=== PATIENT | male | born 1970 | race Caucasian/White ===

== ENCOUNTER 2017-02-22 13:27 | Emergency (ER) | payer MEDICARE, MEDICAID ==
[2017-02-22 13:52] LABS: % EOSINOPHILS 2.3 % (0.0-5.0); % MONOCYTES 6.3 % (2.0-10.0)
[2017-02-22 13:59] LABS: % BASOPHILS 0.8 % (0.0-2.0); % LYMPHOCYTES 17.4 % (20.0-50.0); % NEUTROPHILS 73.2 % (40.0-80.0); HEMOGLOBIN 15.2 gm/dL (13.2-17.3); MEAN CELL VOLUME 87.5 fl (80-99); MEAN CORPUSCULAR HEMOGLOBIN 29.4 pg (26.0-30.0); MEAN CORPUSCULAR HGB CONC 33.6 pg (28.0-36.0); NEUTROPHILE ABSOLUTE 9.5 Th/cmm (1.8-8.0); PLATELET COUNT 321 Th/cmm (150-400); RED BLOOD COUNT 5.19 Mil/cmm (4.30-5.70); RED CELL DISTRIBUTION WIDTH 12.5 % (11.5-20.0)
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
[2017-02-22 14:17] LABS: HEMATOCRIT 45.4 % (39.0-49.0)
--- NOTE | 2017-02-22 15:17 | Diagnostic Imaging Report ---
Right knee (3 views) HISTORY: Pain The exam demonstrates severe degenerative changes with generalized joint space narrowing and hypertrophic spur formation about the medial femoral condyle, medial tibial plateau, and tibial spines. Spur formation also noted about the lateral tibial plateau region. Narrowing and hypertrophic spur formation noted along the posterior margin of the patella. Calcific densities noted along the posterior joint compartment. Intra-articular "loose bodies" cannot be excluded. There is partial visualization of sclerotic change in deformity of the distal femoral shaft. Findings may be associated with old trauma. Correlation with patient history and if needed dedicated radiographs of the femur would provide additional assessment. IMPRESSION: 1. Severe degenerative joint disease 2. Small calcifications projecting over the posterior joint compartment. Intra-articular "loose bodies" cannot be excluded. 2. Deformity of a partially visualized distal femur. Changes may be related to prior trauma. Correlation with patient history and if needed dedicated radiographs of the femur would provide for further assessment.
[2017-02-22 15:19] LABS: ALB/GLOB RATIO 1.7 (1.0-1.8); ALKALINE PHOSPHATASE 66 U/L (34-104); ANION GAP 8.6 (7.0-16.0); BILIRUBIN,TOTAL 0.4 mg/dL (0.3-1.0); BUN - UREA NITROGEN 9 mg/dL (7-25); BUN/CREATININE RATIO 11.3; CALCIUM SERUM 9.2 mg/dL (8.6-10.3); CARBON DIOXIDE 24.1 mEq/L (21.0-31.0); CHLORIDE 106 mEq/L (98-107); CREATININE - SERUM 0.8 mg/dL (0.7-1.3); GLUCOSE 95 mg/dL (70-105); POTASSIUM SERUM 3.7 mEq/L (3.5-5.1); SGOT 22 U/L (13-39); SGPT/ALT 30 U/L (7-52); SODIUM SERUM 135 mEq/L (136-145)
== END 2017-02-22 15:14 | disposition home or self-care (01) ==
LOC: ER 13:27
DX: M23.41 Loose body in knee, right knee (principal); I10 Essential (primary) hypertension
CPT/HCPCS: 99285; 96372; 73564; 84484; 36415; 83605; 84443; 85025; 80320; 80053; 87040; J1885; 73562-TC-RT

== ENCOUNTER 2017-02-24 19:06 | Emergency (ER) | payer MEDICARE, MEDICAID ==
--- NOTE | 2017-02-24 19:20 | ED Physician Chart ---
Chief Complaint/HPI - Patient Information Date Seen:: 02/24/17 Time Seen:: 19:15 Chief Complaint:: Chronic R knee pain for about 11 years. History of Present Illness:: Pt has h/o chronic R knee pain related to DJD from old injury about 11 y/a. Pt underwent arthroscopic surgery soon after R knee injury. Pt has been followed by PCP Dr. Vazquez. Pt was seen here by Dr. Oseguera on 02/22/17 with R knee X-ray done that demonstrates "severe degenerative joint disease. Small calcifications projecting over the posterior joint compartment. Intra-articular 'loose bodies' cannot be excluded. Deformity of a partially visualized distal femur. Changes may be related to prior trauma. Correlation with patient history and if needed dedicated radiographs of the femur would provide for further assessement." Official report per Dr. Hoang Askew. Pt denies any recent R knee injury or trauma. 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 He is essentially wheelchair bound. Pt denies any use of NSAID today. Pt is here to request pain control with Toradol IM injection as he found it very helpful in the past. Pt does not want any imaging study or lab studies. Allergies:: Allergies Allergy/AdvReac Type Severity Reaction Status Date / Time No Known Allergies Allergy Verified 04/12/16 15:00 Vitals:: see Nurse Note. Historian:: Patient Family MD/PCP:: Dr. Vazquez LMP:: N/A Review:: Nurse's Note Reviewed Review of Systems - Review of Systems General/Constitutional: No fever, No weight loss, No weakness, No edema, No loss of appetite Skin: No skin lesions, No rash, No bruising Head: No headache, No light-headedness ENT: No earache, No nasal drainage, No sore throat Neck: No neck pain, No stiffness, No mass noted Cardio Vascular: No chest pain, No palpitations, No edema Pulmonary: No SOB, No cough, No wheezing GI: No nausea, No vomiting, No pain G/U: No dysuria, No frequency, No hematuria Musculoskeletal: Bone or joint pain (chronic R knee pain.) Psychiatric: No prior psych history Hematopoietic: No bruising, No lymphadenopathy Allergic/Immuno: No urticaria, No angioedema Neurological: No syncope, No focal symptoms (except pt has chronic ataxia, see HPI.), No weakness, No headache, No dizziness, No confusion Past Medical History - Past Medical History Past Medical History: Other (chronic R knee pain related to DJD. 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 Surgical History: other (R knee arthroscopic surgery about 11 y/a.) Psychiatricy History: None Medication: Reviewed Family Medical History - Family Member Mother History Unknown: Yes Ethnicity: Non- Living Status: Still Living Hx Family Cancer: No Hx Family Coronary Artery Disease: No Hx Family Congestive Heart Failure: No Hx Family Hypertension: Yes Hx Family Stroke: No Hx Family Diabetes: Yes Hx Family Seizures: No Hx Family Dementia: No Hx Family AIDS: No Hx Family HIV: No Hx Family COPD: No Hx Family Hepatitis: No Hx Family Psychiatric Problems: No Hx Family Tuberculosis: No Father History Unknown: Yes Ethnicity: Non- Living Status: Still Living Hx Family Coronary Artery Disease: Yes Physical Exam - Physical Examination General/Constitutional: Awake, Well-developed, well-nourished, Alert, No distress, Non-toxic appearing Other Gen/Cons comments:: Breathes comfortably, speaks with mild dysarthria as in the past, interacts normally. Eyes: Lids, conjuctiva normal, PERRL, EOMI Skin: Nl inspection, Well hydrated, No lymphadenopathy ENMT: External ears, nose nl, Nasal exam nl, Oropharynx nl Neck: Nontender, Full ROM w/o pain, No nuchal rigidity, No mass, No stridor Respiratory: Nl effort/Exclusion, Clear to Auscultation, No Wheeze/Rhonchi/Rales Cardio Vascular: RRR, No murmur, gallop, rubs GI: No tenderness/rebounding/guarding, No organomegaly, Normal BS's, Nondistended Other GI comments:: Abdomen is obese but soft. Other Extremities comments:: R knee: Tenderness primarily at anterior aspect. No swelling, erythema, crepitus , unusual warmth, or open wound. Good ROM. Negative Drawer's sign. Stable MCL and LCL. No detectable motor/sensory/vascular deficit. Neuro/Psych: Alert/oriented (oriented x 3), Judgement/insight normal, Mood normal Other Neuro/Psych comments:: Ataxia noticed which is chronic; otherwise, no focal findings. ED Septic Shock - . Is Septic Shock (SBP<90, OR Lactate>4 mmol\\L) present?: No Reassessment (Disposition) - Reassessment Reassessment:: 2030 Pt feels much better and requests to go home now. Aftercare instructions have been given. Reassessment Condition:: Improved - Diagnosis Diagnosis:: Chronic R knee pain related to DJD. Stable and improved. - Aftercare/Follow up Instructions Aftercare/Follow-Up Instructions:: Refer to Discharge Instructions Notes:: Continue present care. May take Tylenol 500 mg tab one tab po q6h prn musculoskeletal pain. F/U with PCP Dr. Vazquez in one day for recheck. Return to ER immediately if condition worsens or if any further questions/problems. Medication Prescribed:: None - Patient Disposition Discharge/Transfer:: Home Time:: 20:35 Condition at Disposition:: Stable, Improved ED Discharge Plan - Patient Disposition Admit/Discharge/Transfer: PT DISCHARGED HOME Instructions: Chronic Pain
== END 2017-02-24 20:40 | disposition home or self-care (01) ==
LOC: ER 19:06
DX: G89.29 Other chronic pain (principal); M25.561 Pain in right knee
CPT/HCPCS: 99283; 96372; J1885; Z7502

== ENCOUNTER 2017-03-09 12:19 | Emergency (ER) | payer MEDICARE, MEDICAID ==
--- NOTE | 2017-03-09 12:23 | ED Physician Chart ---
ED Chief Complaint/HPI - Patient Information Date Seen:: 03/09/17 Time Seen:: 12:23 Chief Complaint:: leg pain History of Present Illness:: 46-year-old male with acute, constant, moderate, 6-7 out of 10, aching, worse with palpation, nonradiating, right lower leg pain over the mathew that started yesterday afternoon when he actually revealed his wheelchair into the back of a pickup truck. Has associated abrasion of the mathew. Allergies:: Allergies Allergy/AdvReac Type Severity Reaction Status Date / Time No Known Allergies Allergy Verified 02/24/17 19:25 Historian:: Patient Review:: Nurse's Note Reviewed ED Review of Systems - Review of Systems Other: Complete system review otherwise unremarkable except as noted in history of present illness. ED Past Medical History - Past Medical History Past Medical History: Other (history of chronic brain injury, osteoarthritis) Family History: None Social History: Non Smoker, No Alcohol, No Drug Use, Other Surgical History: other (right leg ORIF) Psychiatricy History: None Medication: Reviewed Family Medical History - Family Member Mother History Unknown: Yes Ethnicity: Non- Living Status: Still Living Hx Family Cancer: No Hx Family Coronary Artery Disease: No Hx Family Congestive Heart Failure: No Hx Family Hypertension: Yes Hx Family Stroke: No Hx Family Diabetes: Yes Hx Family Seizures: No Hx Family Dementia: No Hx Family AIDS: No Hx Family HIV: No Hx Family COPD: No Hx Family Hepatitis: No Hx Family Psychiatric Problems: No Hx Family Tuberculosis: No Father History Unknown: Yes Ethnicity: Non- Living Status: Still Living Hx Family Coronary Artery Disease: Yes ED Physical Exam - Physical Examination Other:: INITIAL VITAL SIGNS: Reviewed by me GENERAL: Alert and interactive. No acute distress HEAD: Head is normocephalic and atraumatic EYES: EOMI. PERRL. No scleral icterus. No conjunctival injection ENT: Moist mucous membranes. NECK: Supple. No masses. Full range of motion RESPIRATORY: No tachypnea. Clear breath sounds bilaterally. No wheezing, rales, or rhonchi CV: Regular rate and rhythm. No murmurs, rubs, or gallops ABDOMEN: Soft, non-distended, non-tender. No guarding. No rebound. No masses. EXTREMITIES: Right mathew, proximal portion has a 4 cm abrasion, there is tenderness to palpation over the proximal mathew area. Right distal foot has good neurovascular status. SKIN: Warm and dry. No obvious rashes. NEUROLOGIC: Alert and oriented. Face is symmetric. Speech is normal. Moves all extremities equally. Motor and sensory distally intact. ED Labs/Radiology/EKG Results - Radiology Results Results: X-ray right Tib/Fib 2V Interpreted by me: Bones: No fracture Joints: No dislocation Foreign body: None ED Septic Shock - . Is Septic Shock (SBP<90, OR Lactate>4 mmol\L) present?: No ED Reassessment (Disposition) - Reassessment Reassessment:: Injury to right mathew. Placed bacitracin on abrasion. No fracture. Appears to have contusion and abrasion. Gave intramuscular Toradol. Patient has primary care physician when she can follow up with tomorrow. He will follow-up with a primary care physician. He can take ibuprofen 40 mg [id number] hours when necessary pain. Patient to follow up with PCP in one day. Return to ER precautions given. Persistent extensors of the plan. Blood pressure was noted to be elevated over 120/80. There were no signs of hypertension. Discussed the findings with the patient and recommended that the patient follow up with the primary care physician regarding the elevated blood pressure. - Diagnosis Diagnosis:: Right lower extremity contusion, first visit Right lower extremity abrasion, first visit - Aftercare/Follow up Instructions Aftercare/Follow-Up Instructions:: Counseled pt regarding lab results/diagnosis & need follow up, Refer to Discharge Instructions - Patient Disposition Discharge/Transfer:: Home Time:: 12:50 Condition at Disposition:: Improved ED Discharge Plan - Patient Disposition Admit/Discharge/Transfer: PT DISCHARGED HOME Condition at Disposition: Improved Instructions: Contusion
[2017-03-09] MEDS ORDERED: Bacitracin pkt 1 gm Pkt TP ONE (12:40)
[2017-03-09] MEDS ORDERED: Bacitracin pkt 1 gm Pkt TP STA (12:41)
--- NOTE | 2017-03-10 08:32 | Diagnostic Imaging Report ---
Exam: Portable examination of the right tibia-fibula 2 views HISTORY: Injury Findings: Portable examination of the right tibia-fibula 1254 was reviewed. The study demonstrates no evidence of fracture dislocation. No soft tissue swelling is present. There is evidence for degenerative changes of the right knee joint with extensive narrowing of joint space and osteophytic spurring spurring. If clinically indicated the examination of the right knee joint recommended. IMPRESSION: essentially unremarkable sedation right tibia-fibula, degenerative osteoarthritis right knee joint
== END 2017-03-09 13:10 | disposition home or self-care (01) ==
LOC: ER 12:19
DX: S80.11XA Contusion of right lower leg, initial encounter (principal); X58.XXXA Exposure to other specified factors, initial encounter; Y93.89 Activity, other specified; Y92.89 Other specified places as the place of occurrence of the external cause; Y99.8 Other external cause status
CPT/HCPCS: 99285; 96372; 73590; Z7610; J1885

== ENCOUNTER 2017-07-10 13:43 | Emergency (ER) | payer MEDICARE, MEDICAID ==
--- NOTE | 2017-07-10 14:12 | ED Physician Chart ---
ED Chief Complaint/HPI - Patient Information Date Seen:: 07/10/17 Time Seen:: 13:50 Chief Complaint:: Right Knee Pain History of Present Illness:: onset x 3 days of intermittent MS type Right Knee Pain which resolved upon ER arrival; pt denies recent trauma, H/As, neck pain, C/P, SOB, Abd. Pain, A/N/V/D/ c, fever, chills, or urinary s/s; no paresthesias, weakness, dizziness, or gait changes Allergies:: Allergies Allergy/AdvReac Type Severity Reaction Status Date / Time No Known Allergies Allergy Verified 03/09/17 12:40 Vitals:: Vital Signs - 8 hr 07/10/17 13:54 Temp 98.4 F HR 102 RR 16 BP 129/72 O2 Sat % 97 Historian:: Patient, EMS Review:: Nurse's Note Reviewed ED Review of Systems - Review of Systems General/Constitutional: No fever, No chills, No weight loss, No weakness, No diaphoresis, No edema, No loss of appetite Skin: No skin lesions, No rash, No bruising Head: No headache, No light-headedness Eyes: No loss of vision, No pain, No diplopia ENT: No earache, No nasal drainage, No sore throat, No tinnitus Neck: No neck pain, No swelling, No thyromegaly, No stiffness, No mass noted Cardio Vascular: No chest pain, No palpitations, No PND, No orthopnea, No edema Pulmonary: No SOB, No cough, No sputum, No wheezing GI: No nausea, No vomiting, No diarrhea, No pain, No melena, No hematochezia, No constipation, No hematemesis G/U: No dysuria, No frequency, No hematuria, No nacturia Musculoskeletal: Bone or joint pain, No back pain, No muscle pain Endocrine: No polyuria, No polydipsia Psychiatric: No prior psych history, No depression, No anxiety, No suicidal ideation, No homicidal ideation, No auditory hallucination, No visual hallucination Hematopoietic: No bruising, No lymphadenopathy Allergic/Immuno: No urticaria, No angioedema Neurological: No syncope, No focal symptoms, No weakness, No paresthesia, No headache, No seizure, No dizziness, No confusion, No vertigo ED Past Medical History - Past Medical History Obtainable: Yes Past Medical History: Arthritis Family History: HTN Social History: Non Smoker, No Alcohol, No Drug Use, Single, Care Facility Surgical History: other (ORIF) Psychiatricy History: None Medication: Reviewed Family Medical History - Family Member Mother History Unknown: Yes Ethnicity: Non- Living Status: Still Living Hx Family Cancer: No Hx Family Coronary Artery Disease: No Hx Family Congestive Heart Failure: No Hx Family Hypertension: Yes Hx Family Stroke: No Hx Family Diabetes: Yes Hx Family Seizures: No Hx Family Dementia: No Hx Family AIDS: No Hx Family HIV: No Hx Family COPD: No Hx Family Hepatitis: No Hx Family Psychiatric Problems: No Hx Family Tuberculosis: No Father History Unknown: Yes Ethnicity: Non- Living Status: Still Living Hx Family Coronary Artery Disease: Yes ED Physical Exam - Physical Examination General/Constitutional: Awake, Well-developed, well-nourished, Alert, No distress, GCS 15, Non-toxic appearing, Ambulatory Head: Atraumatic Eyes: Lids, conjuctiva normal, PERRL, EOMI Skin: Nl inspection, No rash, No skin lesions, No ecchymosis, Well hydrated, No lymphadenopathy ENMT: External ears, nose nl, TM canals nl, Nasal exam nl, Lips, teeth, gums nl , Oropharynx nl, Tonsils nl Neck: Nontender, Full ROM w/o pain, No JVD, No nuchal rigidity, No bruit, No mass, No stridor Other Neck comments:: Supple; no meningeal signs; no cervical tenderness; no bruits Respiratory: Nl effort/Exclusion, Clear to Auscultation, No Wheeze/Rhonchi/Rales Cardio Vascular: RRR, No murmur, gallop, rubs, NL S1 S2, Carotid/Femoral/Distal pulses equal bilaterally GI: No tenderness/rebounding/guarding, No organomegaly, No hernia, Normal BS's, Nondistended, No mass/bruits, No McBurney tenderness Other GI comments:: no pulsatile masses : No CVA tenderness Extremities: No tenderness or effusion, Full ROM, normal strength in all extremities, No edema, Normal digits & nails Other Extremities comments:: -Kelsea'as sign; no calf tenderness; no DVT Neuro/Psych: Alert/oriented, DTR's symmetric, Normal sensory exam, Normal motor strength, Judgement/insight normal, Mood normal, Normal gait, No focal deficits Misc: Normal back, No paraspinal tenderness ED Labs/Radiology/EKG Results - Radiology Results Comments:: X-Rays: deferred by pt ED Septic Shock - . Is Septic Shock (SBP<90, OR Lactate>4 mmol\L) present?: No - <6hrs of presentation: Vital Signs: Vital Signs - 8 hr 07/10/17 13:54 Temp 98.4 F HR 102 RR 16 BP 129/72 O2 Sat % 97 ED Reassessment (Disposition) - Reassessment Reassessment:: pt is asymptomatic upon discharge Reassessment Condition:: Improved - Diagnosis Diagnosis:: Right Knee Sprain; Right Knee Pain-Resolved - Aftercare/Follow up Instructions Aftercare/Follow-Up Instructions:: Counseled pt regarding lab results/diagnosis & need follow up, Refer to Discharge Instructions, Counseled pt & family regarding lab results/diagnosis & need follow up - Patient Disposition Discharge/Transfer:: Home Condition at Disposition:: Stable, Improved (RTER prn if existing s/s reoccur and/or get worse and/or any other new s/s occur; ACIs given for all above Dx; Refer to Orthopedist/Composer Teaching Artist JANEEN; F/U with PMD in one day or prn; RTER prn if concerned)
== END 2017-07-10 14:45 | disposition home or self-care (01) ==
LOC: ER 13:43
DX: S83.91XA Sprain of unspecified site of right knee, initial encounter (principal); X58.XXXA Exposure to other specified factors, initial encounter; Y93.89 Activity, other specified; Y92.89 Other specified places as the place of occurrence of the external cause; Y99.8 Other external cause status
CPT/HCPCS: 99283; 96372; J1885; Z7502

== ENCOUNTER 2017-07-12 16:21 | Emergency (ER) | payer MEDICARE, MEDICAID ==
--- NOTE | 2017-07-12 16:43 | ED Physician Chart ---
ED Chief Complaint/HPI - Patient Information Date Seen:: 07/12/17 Time Seen:: 16:37 Chief Complaint:: Right knee pain History of Present Illness:: 46 yo male had right knee pain for 3 years. The patient saw an orthopedic surgeon and a surgical treatment was recommended. The right knee pain currently was 8/10. Toradol was able to relieve the pain. Allergies:: Allergies Allergy/AdvReac Type Severity Reaction Status Date / Time No Known Allergies Allergy Verified 03/09/17 12:40 ED Past Medical History - Past Medical History Past Medical History: Other (Right knee DJD, TBI) Social History: Non Smoker, No Alcohol, No Drug Use Surgical History: other (ORIF right femur fracture) Family Medical History - Family Member Mother History Unknown: Yes Ethnicity: Non- Living Status: Still Living Hx Family Cancer: No Hx Family Coronary Artery Disease: No Hx Family Congestive Heart Failure: No Hx Family Hypertension: Yes Hx Family Stroke: No Hx Family Diabetes: Yes Hx Family Seizures: No Hx Family Dementia: No Hx Family AIDS: No Hx Family HIV: No Hx Family COPD: No Hx Family Hepatitis: No Hx Family Psychiatric Problems: No Hx Family Tuberculosis: No Father History Unknown: Yes Ethnicity: Non- Living Status: Still Living Hx Family Coronary Artery Disease: Yes ED Physical Exam - Physical Examination General/Constitutional: Awake Eyes: PERRL Other Extremities comments:: Right knee painful ROM, limited ROM with crepitus, tenderness anterior lateral joint area ED Assessment - Assessment General Assessment: Right knee DJD Assessment/Comments:: Toradol 30mg IM
== END 2017-07-12 17:15 | disposition home or self-care (01) ==
LOC: ER 16:21
DX: M17.31 Unilateral post-traumatic osteoarthritis, right knee (principal)
CPT/HCPCS: 99283; 96372; J1885; Z7502

== ENCOUNTER 2017-07-14 16:06 | Emergency (ER) | payer MEDICARE, MEDICAID ==
--- NOTE | 2017-07-14 16:35 | ED Physician Chart ---
ED Chief Complaint/HPI - Patient Information Date Seen:: 07/14/17 Time Seen:: 16:42 History of Present Illness:: 46 yo male came to ER requesting Toradol shot for his right knee pain for 3 years. The patient received Toradol shot 30mg two days ago. The patient saw an orthopedic surgeon and a follow up was recommended. In the ER, the patient appeared to have wheeze with difficulty breathing. Allergies:: Allergies Allergy/AdvReac Type Severity Reaction Status Date / Time No Known Allergies Allergy Verified 03/09/17 12:40 Vitals:: Vital Signs - 8 hr 07/14/17 16:22 Temp 98.0 F HR 103 RR 21 BP 135/78 O2 Sat % 96 ED Review of Systems - Review of Systems General/Constitutional: Weakness Skin: No bruising Eyes: No pain ENT: No nasal drainage Neck: No neck pain Cardio Vascular: No chest pain Pulmonary: Wheezing GI: No nausea, No vomiting Musculoskeletal: Bone or joint pain (right knee pain) Family Medical History - Family Member Mother History Unknown: Yes Ethnicity: Non- Living Status: Still Living Hx Family Cancer: No Hx Family Coronary Artery Disease: No Hx Family Congestive Heart Failure: No Hx Family Hypertension: Yes Hx Family Stroke: No Hx Family Diabetes: Yes Hx Family Seizures: No Hx Family Dementia: No Hx Family AIDS: No Hx Family HIV: No Hx Family COPD: No Hx Family Hepatitis: No Hx Family Psychiatric Problems: No Hx Family Tuberculosis: No Father History Unknown: Yes Ethnicity: Non- Living Status: Unknown Hx Family Coronary Artery Disease: Yes ED Physical Exam - Physical Examination General/Constitutional: Awake Head: Atraumatic Eyes: PERRL ENMT: Nasal exam nl Neck: No nuchal rigidity Other Respiratory comments:: Wheeze bilaterally Cardio Vascular: RRR, No murmur, gallop, rubs, NL S1 S2 GI: No tenderness/rebounding/guarding Other Extremities comments:: Right anterior inferior knee tenderness with crepitus. 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 I explained to him the risks of toradol including GI bleeding, ulcer, and stomach or intestine perforation, which can be fatal; may occur at any time during use and without warning sign. The risks also include serious and potentially fatal cardiovascular thrombotic events including CT and stroke. I recommended him to follow up with chemistry specialist and possible physical therapy. I also explained the serious risk of over dose and caused by [place] and other narcotics which are indicated only for short term use. They are not indicated for chronic pain. He also has wheeze. Assessment/Comments:: CBC, CMP, CXR DuoNeb D/c home F/u PCP or orthopedics ED Septic Shock - . Is Septic Shock (SBP<90, OR Lactate>4 mmol\L) present?: No - <6hrs of presentation: Vital Signs: Vital Signs - 8 hr 07/14/17 16:22 Temp 98.0 F HR 103 RR 21 BP 135/78 O2 Sat % 96 ED Reassessment (Disposition) - Reassessment Reassessment Condition:: Improved - Patient Disposition Discharge/Transfer:: Home ED Discharge Plan - Patient Disposition Admit/Discharge/Transfer: PT DISCHARGED HOME Condition at Disposition: Improved Instructions: Osteoarthritis, Knee, Cartilage and its Function Additional Instructions: Follow up with your primary care doctor. You need to follow up with a Orthopedic doctor for further evaluation and treatment. If symptoms worsen, return to emergency department. Accepting Physician: Tuan Conway [Active] -
[2017-07-14] MEDS ORDERED: Albuterol/Ipratropium Neb 3 ML AERS HHN ONE ×2 (17:06→17:11)
[2017-07-14 17:29] LABS: % BASOPHILS 0.6 % (0.0-2.0); % EOSINOPHILS 2.6 % (0.0-5.0); % LYMPHOCYTES 19.7 % (20.0-50.0); % MONOCYTES 6.3 % (2.0-10.0); % NEUTROPHILS 70.8 % (40.0-80.0); BASOPHILE ABSOLUTE 0.1 Th/cumm (0-0.2); EOSINOPHILE ABSOLUTE 0.3 Th/cmm (0.1-0.4); HEMATOCRIT 41.6 % (41.0-60); LYMPHOCYTE ABSOLUTE 1.9 Th/cmm (1.5-3.0); MEAN CELL VOLUME 87.4 fl (80-99); MEAN CORPUSCULAR HEMOGLOBIN 29.4 pg (26.0-30.0); MEAN CORPUSCULAR HGB CONC 33.7 pg (28.0-36.0); MEAN PLATELET VOLUME 7.3 fl; MONOCYTE ABSOLUTE 0.6 Th/cmm (0.3-1.0); NEUTROPHILE ABSOLUTE 6.9 Th/cmm (1.8-8.0); PLATELET COUNT 309 Th/cmm (150-400); RED BLOOD COUNT 4.76 Mil/cmm (4.30-5.70); RED CELL DISTRIBUTION WIDTH 12.4 % (11.5-20.0)
[2017-07-14 17:36] LABS: WHITE BLOOD COUNT 9.8 Th/cmm (4.8-10.8)
[2017-07-14 17:46] LABS: ALB/GLOB RATIO 1.6 (1.0-1.8); ALBUMIN 4.2 gm/dL (4.2-5.5); ALKALINE PHOSPHATASE 62 U/L (34-104); ANION GAP 10.3 (7.0-16.0); BILIRUBIN,TOTAL 0.3 mg/dL (0.3-1.0); BUN - UREA NITROGEN 17 mg/dL (7-25); CALCIUM SERUM 9.1 mg/dL (8.6-10.3); CARBON DIOXIDE 27.9 mEq/L (21.0-31.0); CHLORIDE 108 mEq/L (98-107); GFR AFRICAN-AMERICAN > 60.0 ml/min (>90); GFR NON AFRICAN-AMERICAN > 60.0 ml/min; GLUCOSE 105 mg/dL (70-105); POTASSIUM SERUM 4.2 mEq/L (3.5-5.1); SGOT 23 U/L (13-39); SGPT/ALT 24 U/L (7-52); SODIUM SERUM 142 mEq/L (136-145); TOTAL PROTEIN,SERUM 6.8 gm/dL (6.0-8.3)
--- NOTE | 2017-07-15 07:22 | Diagnostic Imaging Report ---
Portable chest x-ray Time: 1801 hours History: Shortness of breath Allowing for portable technique the heart size is normal. No focal pulmonary parenchymal processes. No hilar or mediastinal abnormalities. Impression: No acute abnormalities.
--- NOTE | 2017-07-15 07:26 | Diagnostic Imaging Report ---
Exam: Right knee joint. HISTORY: Right knee pain Findings: Multiple views of right knee joint reviewed. The study demonstrates extensive osteoarthritic changes with narrowing of the joint space and flattening of tibial plateau with extensive spurring. There is evidence for appears to be intra-articular calcification consistent with osteochondrosis. Clinical correlation recommended. Ligamentous or meniscal injury suspected MRI examination might be helpful. The visualized patella is intact. The prepatellar space is narrowed. Deformity of the midportion of the right femur is noted most likely from previous healed fracture. IMPRESSION: Extensive degenerative osteopenia changes of the right knee joint with osteochondritis.
== END 2017-07-14 18:47 | disposition home or self-care (01) ==
LOC: ER 16:06
DX: M25.561 Pain in right knee (principal); R06.2 Wheezing
CPT/HCPCS: 36415-UA; 71045-TC; 73560-TC-RT; 80053-TC; 85025-TC; 94640

== ENCOUNTER 2017-07-15 19:02 | Emergency (ER) | payer MEDICARE, MEDICAID ==
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
== END 2017-07-15 20:35 | disposition home or self-care (01) ==
LOC: ER 19:02
DX: S09.92XA Unspecified injury of nose, initial encounter (principal); Y04.8XXA Assault by other bodily force, initial encounter; Y93.89 Activity, other specified; Y92.521 Bus station as the place of occurrence of the external cause; Y99.8 Other external cause status
CPT/HCPCS: Z7502

== ENCOUNTER 2017-07-21 13:53 | Emergency (ER) | payer MEDICARE, MEDICAID ==
--- NOTE | 2017-07-21 14:04 | ED Physician Chart ---
ED Chief Complaint/HPI - Patient Information Date Seen:: 07/21/17 Time Seen:: 14:03 Chief Complaint:: Right knee pain Allergies:: Allergies Allergy/AdvReac Type Severity Reaction Status Date / Time No Known Allergies Allergy Verified 07/15/17 19:48 Family Medical History - Family Member Mother History Unknown: Yes Ethnicity: Non- Living Status: Still Living Hx Family Cancer: No Hx Family Coronary Artery Disease: No Hx Family Congestive Heart Failure: No Hx Family Hypertension: Yes Hx Family Stroke: No Hx Family Diabetes: Yes Hx Family Seizures: No Hx Family Dementia: No Hx Family AIDS: No Hx Family HIV: No Hx Family COPD: No Hx Family Hepatitis: No Hx Family Psychiatric Problems: No Hx Family Tuberculosis: No Father History Unknown: Yes Ethnicity: Non- Living Status: Unknown Hx Family Coronary Artery Disease: Yes
== END 2017-07-21 15:16 | disposition home or self-care (01) ==
LOC: ER 13:53
DX: M25.561 Pain in right knee (principal)

== ENCOUNTER 2017-09-06 20:23 | Emergency (ER) | payer MEDICARE, MEDICAID | END 2017-09-06 20:42 | disposition left against medical advice (07) | LOC: ER 20:23 | DX: M25.569 Pain in unspecified knee (principal); Z53.21 Procedure and treatment not carried out due to patient leaving prior to being seen by health care provider ==

== ENCOUNTER 2017-10-22 12:02 | Emergency (ER) | payer MEDICARE, MEDICAID | END 2017-10-22 12:15 | disposition left against medical advice (07) | LOC: ER 12:02 | DX: M25.569 Pain in unspecified knee (principal) ==

== ENCOUNTER 2018-03-12 12:33 | Emergency (ER) | payer MEDICARE, MEDICAID | END 2018-03-12 12:45 | disposition left against medical advice (07) | LOC: ER 12:33 | DX: M25.569 Pain in unspecified knee (principal) ==

== ENCOUNTER 2018-05-29 17:13 | Emergency (ER) | payer MEDICARE, MEDICAID ==
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
[2018-05-29 18:26] LABS: AMPHETAMINE URINE NEGATIVE (NEGATIVE); BARBITURATES URINE NEGATIVE (NEGATIVE); BENZODIAZEPINES QUAL URINE NEGATIVE (NEGATIVE); CANNABINOID THC NEGATIVE (NEGATIVE); COCAINE METABOLITE QUAL URINE NEGATIVE (NEGATIVE); METHADONE URINE NEGATIVE (NEGATIVE); METHAMPHETAMINES QUAL URINE NEGATIVE (NEGATIVE); OPIATES (MORPHINE) QUAL. URINE NEGATIVE (NEGATIVE); PHENCYCLIDINE (PCP) URINE NEGATIVE (NEGATIVE); TRICYCLICS (TCA) QUAL. URINE NEGATIVE (NEGATIVE)
== END 2018-05-29 19:02 | disposition home or self-care (01) ==
LOC: ER 17:13
DX: F60.0 Paranoid personality disorder (principal); R47.81 Slurred speech; Z87.820 Personal history of traumatic brain injury; Z98.890 Other specified postprocedural states
CPT/HCPCS: 80307; Z7502

== ENCOUNTER 2018-12-17 19:26 | Emergency (ER) | payer MEDICARE, MEDICAID ==
--- NOTE | 2018-12-17 19:48 | ED Physician Chart ---
ED Chief Complaint/HPI - Patient Information Date Seen:: 12/17/18 Time Seen:: 19:46 Chief Complaint:: right knee injury History of Present Illness:: this is a 48 yo male who male who states that he fell earlier today and injured his right knee. he states that he has injured the knee in the past. Allergies:: Allergies Allergy/AdvReac Type Severity Reaction Status Date / Time No Known Allergies Allergy Verified 05/29/18 18:16 Vitals:: Vital Signs - 8 hr 12/17/18 19:38 Temp 98.1 F HR 101 RR 18 BP 119/88 O2 Sat % 96 Family Medical History - Family Member Mother History Unknown: Yes Ethnicity: Non- Living Status: Still Living Hx Family Cancer: No Hx Family Coronary Artery Disease: No Hx Family Congestive Heart Failure: No Hx Family Hypertension: Yes Hx Family Stroke: No Hx Family Diabetes: Yes Hx Family Seizures: No Hx Family Dementia: No Hx Family AIDS: No Hx Family HIV: No Hx Family COPD: No Hx Family Hepatitis: No Hx Family Psychiatric Problems: No Hx Family Tuberculosis: No Father History Unknown: Yes Ethnicity: Non- Living Status: Unknown Hx Family Coronary Artery Disease: Yes ED Labs/Radiology/EKG Results - Radiology Results Results: right knee x-ray = loose bodies noted and no acute fx ED Assessment - Assessment General Assessment: chronic right knee pain ED Septic Shock - . Is Septic Shock (SBP<90, OR Lactate>4 mmol\L) present?: No - <6hrs of presentation: Vital Signs: Vital Signs - 8 hr 12/17/18 19:38 Temp 98.1 F HR 101 RR 18 BP 119/88 O2 Sat % 96 ED Reassessment (Disposition) - Reassessment Reassessment Condition:: Improved - Diagnosis Diagnosis:: contusion of the right knee - Aftercare/Follow up Instructions Aftercare/Follow-Up Instructions:: Counseled pt regarding lab results/diagnosis & need follow up, Refer to Discharge Instructions, Counseled pt & family regarding lab results/diagnosis & need follow up Medication Prescribed:: fanatrex - Patient Disposition Discharge/Transfer:: Home Condition at Disposition:: Improved
--- NOTE | 2018-12-18 08:51 | Diagnostic Imaging Report ---
Right knee (3 views) HISTORY: Pain, trauma No acute bony abnormalities. No fractures. Marked lateral joint space narrowing. Hypertrophic spur formation noted about the medial femoral condyle and the medial and lateral tibial plateau regions. Narrowing and hypertrophic bony changes noted about the patellofemoral joint space. Is noted in the suprapatellar region. Findings may be a dystrophic basis. IMPRESSION: 1. No acute bony abnormalities 2. Degenerative and chronic changes
== END 2018-12-17 21:27 | disposition home or self-care (01) ==
LOC: EDUNIT# → ER 19:26
DX: S80.01XA Contusion of right knee, initial encounter (principal); G89.29 Other chronic pain; M25.561 Pain in right knee; W18.39XA Other fall on same level, initial encounter; Y93.89 Activity, other specified; Y92.89 Other specified places as the place of occurrence of the external cause; Y99.8 Other external cause status
CPT/HCPCS: 99283; 96372; 73564; J1885; 73562-TC-RT; Z7502

== ENCOUNTER 2019-01-01 20:38 | Emergency (ER) | payer MEDICARE, MEDICAID ==
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
== END 2019-01-02 06:07 | disposition home or self-care (01) ==
LOC: ER 20:38
DX: M25.561 Pain in right knee (principal); G89.29 Other chronic pain; R60.0 Localized edema
CPT/HCPCS: 99283; 96372; J1885; Z7502